=== PATIENT | male | born 1970 | race African-American/Black ===

== ENCOUNTER → 2016-11-12 | Outpatient (CLI) | payer OTHER ==
[~2016-11-12] MED LIST: 'PARAFON FORTE500 M1 PO; ASA; ASPIR-TRIN325 MG; CRESTOR5 MG PO; DIABETA5 MG; FLONASE 0.05% 121 EA NAS; HUMALOG100 U/ML SC; HYDROCODONE BIT1 T11 PO; INVOKANA100 MG PO; INVOKANA300 M1 PO; K-DUR 20MEQ20 MEQ PO; LISINOPRIL20 MG PO; LIVALO4 M1 PO; METFORMIN1000 MG; NAPROSYN500 MG PO; NOVOLOG 701 UNIT/0.0; PEPCID20 MG PO; PRILOSEC40 MG; SIMVASTATIN1 POW; SIMVASTATIN20 MG; ZESTRIL,PRINIVI10 MG PO
[2016-11-12 09:07] LABS: HEMOGLOBIN A1c 7.1 % (4.8-5.6)
[2016-11-12 09:30] LABS: ALBUMIN 3.7 gm/dl (3.1-4.5); BUN 12 mg/dl (7-24); CARBON DIOXIDE 26 mmol/L (21-32); CHLORIDE 105 mmol/L (98-107); CHOLESTEROL 231 mg/dL (<200); EST GLOM FILT AFRICAN AMERICAN > 60 ml/min; GLUCOSE 128 mg/dL (65-99); POTASSIUM 4.1 mmol/L (3.5-5.1); SGOT/AST 16 IU/L (3-35); SGPT/ALT 34 U/L (12-78); SODIUM 140 mmol/L (136-145); TRIGLYCERIDES 108 mg/dl (<150); VLDL CHOLESTEROL 22 mg/dL (6-40)
[2016-11-12 09:32] LABS: ALKALINE PHOSPHATASE 58 U/L (45-117); BILIRUBIN, TOTAL 0.5 mg/dl (0.2-1.0); HDL CHOLESTEROL 65 mg/dl (40-60); LDL CHOLESTEROL 144 mg/dL (9-159); TOTAL PROTEIN 7.6 gm/dL (6.4-8.2)
[2016-11-13 08:11] LABS: MICRO ALBUMIN/CRE RATIO 19.5 (0.0-30.0)
== END | disposition home or self-care (01) ==
LOC: LAB 08:23
PROVIDERS: Physician Assistant
DX: E11.65 Type 2 diabetes mellitus with hyperglycemia (principal); E78.2 Mixed hyperlipidemia

== ENCOUNTER → 2017-03-13 | Outpatient (CLI) | payer OTHER ==
[2017-03-13 09:38] LABS: ALBUMIN 3.5 gm/dl (3.1-4.5); ALKALINE PHOSPHATASE 65 U/L (45-117); BUN 13 mg/dl (7-24); CHLORIDE 104 mmol/L (98-107); CHOLESTEROL 247 mg/dL (<200); CREATININE 1.04 mg/dL (0.70-1.30); HDL CHOLESTEROL 56 mg/dl (40-60); LDL CHOLESTEROL 160 mg/dL (9-159); POTASSIUM 4.1 mmol/L (3.5-5.1); SGOT/AST 12 IU/L (3-35); SGPT/ALT 30 U/L (12-78); SODIUM 138 mmol/L (136-145); TOTAL PROTEIN 7.4 gm/dL (6.4-8.2); VLDL CHOLESTEROL 31 mg/dL (6-40)
== END | disposition home or self-care (01) ==
LOC: LAB 08:40
PROVIDERS: Internal Medicine Endocrinology, Diabetes & Metabolism
DX: E11.65 Type 2 diabetes mellitus with hyperglycemia (principal); E78.2 Mixed hyperlipidemia

== ENCOUNTER → 2017-07-12 | Outpatient (CLI) | payer OTHER ==
[2017-07-12 10:00] LABS: ALBUMIN 3.7 gm/dl (3.1-4.5); ALKALINE PHOSPHATASE 67 U/L (45-117); BUN 15 mg/dl (7-24); CHLORIDE 102 mmol/L (98-107); CHOLESTEROL 211 mg/dL (<200); CREATININE 1.14 mg/dL (0.70-1.30); HDL CHOLESTEROL 56 mg/dl (40-60); LDL CHOLESTEROL 126 mg/dL (9-159); SGOT/AST 18 IU/L (3-35); SGPT/ALT 45 U/L (12-78); SODIUM 136 mmol/L (136-145); TOTAL PROTEIN 7.6 gm/dL (6.4-8.2); VLDL CHOLESTEROL 29 mg/dL (6-40)
== END | disposition home or self-care (01) ==
LOC: LAB 08:50
PROVIDERS: Internal Medicine Endocrinology, Diabetes & Metabolism
DX: E11.65 Type 2 diabetes mellitus with hyperglycemia (principal); E78.2 Mixed hyperlipidemia

== ENCOUNTER 2017-09-29 12:51 | Inpatient (IN) | payer OTHER ==
[~2017-09-29] VITALS: Ht 172.7 cm; Wt 173.9 kg
[2017-09-29] VITALS (7 sets, daily range): BP systolic 114–150; BP diastolic 60–88
[~2017-09-29 12:51] MED LIST changes: -ASPIR-TRIN325 MG; +ASPIRIN325 MG PO
[2017-09-29 13:09] LABS: BASO % 0.2 % (0.0-1.0); EOS # 0.1 10*3/uL (0.0-0.4); EOS % 1.3 % (1.0-4.0); HEMATOCRIT 47.6 % (42.0-52.0); MEAN CELL VOLUME 82.1 fl (80.0-94.0); MEAN CORPUSCULAR HGB 25.9 pg (27.0-31.0); MEAN CORPUSCULAR HGB CONC 31.5 g/dl (33.0-37.0); MEAN PLATELET VOLUME 11.3 fl (9.6-12.3); MONO # 0.3 10*3/uL (0.1-1.0); MONO % 6.5 % (3.0-9.0); NEUT # 2.1 10*3/uL (2.3-7.9); NEUT % 47.8 % (47.0-73.0); PLATELET COUNT AUTOMATED 149 10*3/uL (130-400); RED CELL DISTRI WIDTH 13.7 % (0-14.5); WHITE BLOOD COUNT 4.5 10*3/uL (4.8-10.8)
[2017-09-29 13:20] LABS: ACT PARTIAL THROMBO TIME 23.4 SECONDS (20.8-31.5); INTERNATIONAL NORM RATIO 0.9 (2.0-3.5)
[2017-09-29 13:26] LABS: ALBUMIN 3.8 gm/dl (3.1-4.5); ALKALINE PHOSPHATASE 60 U/L (45-117); BUN 12 mg/dl (7-24); CHLORIDE 102 mmol/L (98-107); CREATININE 1.06 mg/dL (0.70-1.30); POTASSIUM 4.3 mmol/L (3.5-5.1); SGOT/AST 17 IU/L (3-35); SGPT/ALT 34 U/L (12-78); SODIUM 137 mmol/L (136-145); TOTAL PROTEIN 7.4 gm/dL (6.4-8.2)
[2017-09-29 13:27] LABS: TROPONIN I < 0.015 ng/ml (<0.045)
[2017-09-29] MEDS ORDERED: FARXIGA10 M1 PO (17:03)
[2017-09-30] VITALS: BP 126/70
[2017-09-30 08:00] VITALS: BP 140/90
[2017-09-30 08:23] LABS: BUN 12 mg/dl (7-24); CHLORIDE 107 mmol/L (98-107); CHOLESTEROL 211 mg/dL (<200); POTASSIUM 4.2 mmol/L (3.5-5.1); SODIUM 142 mmol/L (136-145); TRIGLYCERIDES 133 mg/dl (<150); VLDL CHOLESTEROL 27 mg/dL (6-40)
[2017-09-30 08:24] LABS: HDL CHOLESTEROL 44 mg/dl (40-60); LDL CHOLESTEROL 140 mg/dL (9-159)
[2017-09-30 12:00] VITALS: BP 155/80
[2017-09-30 16:00] VITALS: BP 148/94
[2017-09-30 20:00] VITALS: BP 131/77
[2017-10-01] VITALS: BP 115/47; BP 127/74
[2017-10-01 06:26] LABS: BASO % 0.4 % (0.0-1.0); EOS # 0.1 10*3/uL (0.0-0.4); EOS % 1.6 % (1.0-4.0); HEMATOCRIT 48.5 % (42.0-52.0); HEMOGLOBIN 14.9 g/dl (14.0-18.0); LYMPH # 2.3 10*3/uL (1.3-4.4); LYMPH % 51.2 % (27.0-41.0); MEAN CELL VOLUME 83.8 fl (80.0-94.0); MEAN CORPUSCULAR HGB 25.7 pg (27.0-31.0); MEAN CORPUSCULAR HGB CONC 30.7 g/dl (33.0-37.0); MEAN PLATELET VOLUME 11.6 fl (9.6-12.3); MONO # 0.3 10*3/uL (0.1-1.0); MONO % 7.5 % (3.0-9.0); NEUT # 1.8 10*3/uL (2.3-7.9); NEUT % 39.1 % (47.0-73.0); PLATELET COUNT AUTOMATED 148 10*3/uL (130-400); RED BLOOD COUNT 5.79 10*6/uL (4.50-5.90); RED CELL DISTRI WIDTH 13.8 % (0-14.5); WHITE BLOOD COUNT 4.5 10*3/uL (4.8-10.8)
[2017-10-01 07:01] LABS: ALBUMIN 3.5 gm/dl (3.1-4.5); ALKALINE PHOSPHATASE 51 U/L (45-117); BUN 10 mg/dl (7-24); CHLORIDE 104 mmol/L (98-107); CREATININE 0.99 mg/dL (0.70-1.30); PHOSPHOROUS 3.6 mg/dL (2.5-4.9); POTASSIUM 4.3 mmol/L (3.5-5.1); SGOT/AST 13 IU/L (3-35); SGPT/ALT 32 U/L (12-78); SODIUM 139 mmol/L (136-145); TOTAL PROTEIN 7.3 gm/dL (6.4-8.2)
[2017-10-01 08:00] VITALS: BP 122/73
[2017-10-01] MEDS ORDERED: METFORMIN500 MG PO (13:38)
[2017-10-01 16:00] VITALS: BP 130/89
== END 2017-10-01 18:31 | disposition home or self-care (01) | DRG 313 ==
LOC: ED 12:51 → 5E 16:55 → EDHOLD 16:55 → 5E 17:27
PROVIDERS: Emergency Medicine; Internal Medicine
PROC: 3E073KZ Introduction of Other Diagnostic Substance into Coronary Artery, Percutaneous Approach (ICD-10-PCS; principal; 2017-10-01)
PROC: 4A02XM4 Measurement of Cardiac Total Activity, External Approach (ICD-10-PCS; principal; 2017-10-01)
DX: R07.89 Other chest pain (principal); E11.65 Type 2 diabetes mellitus with hyperglycemia; Z68.43 Body mass index [BMI] 50.0-59.9, adult; E66.01 Morbid (severe) obesity due to excess calories; I10 Essential (primary) hypertension; E78.5 Hyperlipidemia, unspecified; E83.41 Hypermagnesemia; Z79.82 Long term (current) use of aspirin; Z79.84 Long term (current) use of oral hypoglycemic drugs; Z79.899 Other long term (current) drug therapy; Z82.49 Family history of ischemic heart disease and other diseases of the circulatory system; Z83.3 Family history of diabetes mellitus

== ENCOUNTER 2020-04-24 11:54 | Emergency (ER) | payer OTHER ==
[~2020-04-24 11:54] MED LIST changes: +FARXIGA10 M1 PO; +METFORMIN500 MG PO; +TRULICITY1.5 MG/0.5 SC
[2020-04-24] MEDS ORDERED: TRADJENTA5 M1 PO (12:16)
[2020-04-24 12:30] LABS: LYMPH # 1.2 10*3/uL (1.3-4.4); LYMPH % 37.8 % (27.0-41.0); MEAN CELL VOLUME 79.9 fl (80.0-94.0); MEAN CORPUSCULAR HGB CONC 31.3 g/dl (33.0-37.0); MONO # 0.2 10*3/uL (0.1-1.0); MONO % 5.7 % (3.0-9.0); NEUT # 1.8 10*3/uL (2.3-7.9); NEUT % 55.9 % (47.0-73.0); PLATELET COUNT AUTOMATED 123 10*3/uL (130-400); RED BLOOD COUNT 5.63 10*6/uL (4.50-5.90); RED CELL DISTRI WIDTH 13.3 % (0-14.5); WHITE BLOOD COUNT 3.2 10*3/uL (4.8-10.8)
[2020-04-24 12:45] LABS: ALBUMIN 2.6 gm/dl (3.1-4.5); ALKALINE PHOSPHATASE 48 U/L (45-117); BUN 9 mg/dl (7-24); CHLORIDE 99 mmol/L (98-107); CREATININE 1.17 mg/dL (0.70-1.30); POTASSIUM 3.4 mmol/L (3.5-5.1); SGOT/AST 20 IU/L (3-35); SGPT/ALT 31 U/L (12-78); SODIUM 134 mmol/L (136-145); TOTAL PROTEIN 7.1 gm/dL (6.4-8.2)
[2020-04-24 12:47] LABS: TROPONIN I < 0.015 ng/ml (<0.045)
== END 2020-04-24 13:26 | disposition home or self-care (01) ==
LOC: ED 11:54
PROVIDERS: Student in an Organized Health Care Education/Training Program
DX: U07.1 COVID-19 (principal); B34.9 Viral infection, unspecified; E11.9 Type 2 diabetes mellitus without complications; E66.01 Morbid (severe) obesity due to excess calories; Z79.899 Other long term (current) drug therapy; Z79.82 Long term (current) use of aspirin; Z98.61 Coronary angioplasty status

== ENCOUNTER 2020-04-26 13:19 | Inpatient (IN) | payer OTHER ==
[~2020-04-26] VITALS: Ht 182.8 cm; Wt 156.9 kg
[~2020-04-26 13:19] MED LIST changes: +TRADJENTA5 M1 PO
[2020-04-26 13:55] VITALS: BP 124/69
[2020-04-26 14:44] LABS: BASO % 0.2 % (0.0-1.0); EOS % 0.2 % (1.0-4.0); HEMATOCRIT 43.8 % (42.0-52.0); LYMPH # 0.9 10*3/uL (1.3-4.4); LYMPH % 18.4 % (27.0-41.0); MEAN CELL VOLUME 78.8 fl (80.0-94.0); MEAN CORPUSCULAR HGB 24.6 pg (27.0-31.0); MEAN CORPUSCULAR HGB CONC 31.3 g/dl (33.0-37.0); MEAN PLATELET VOLUME 12.2 fl (9.6-12.3); MONO # 0.2 10*3/uL (0.1-1.0); MONO % 4.7 % (3.0-9.0); NEUT # 3.9 10*3/uL (2.3-7.9); NEUT % 75.5 % (47.0-73.0); PLATELET COUNT AUTOMATED 178 10*3/uL (130-400); RED BLOOD COUNT 5.56 10*6/uL (4.50-5.90); RED CELL DISTRI WIDTH 13.1 % (0-14.5); WHITE BLOOD COUNT 5.1 10*3/uL (4.8-10.8)
[2020-04-26 14:59] LABS: ALBUMIN 2.4 gm/dl (3.1-4.5); ALKALINE PHOSPHATASE 46 U/L (45-117); BUN 14 mg/dl (7-24); CHLORIDE 97 mmol/L (98-107); CREATININE 1.25 mg/dL (0.70-1.30); LDH 457 U/L (87-241); POTASSIUM 3.2 mmol/L (3.5-5.1); SGOT/AST 27 IU/L (3-35); SGPT/ALT 22 U/L (12-78); SODIUM 134 mmol/L (136-145); TOTAL PROTEIN 7.1 gm/dL (6.4-8.2)
[2020-04-26 15:14] LABS: ACT PARTIAL THROMBO TIME 30.2 SECONDS (20.0-32.1)
--- NOTE | 2020-04-26 16:21 | NUR ---
PT W/O ACUTE DISTRESS NOTED WATCHING T.V. AWAITING ALL RESULTS FOR ADDITIONAL PLAN OF CARE,SAFETY PRECAUTIONS INTACT AND CALL LIGHT WITHIN REACH.
[2020-04-26 17:33] VITALS: BP 130/72
--- NOTE | 2020-04-26 19:30 | NUR ---
PT PROVIDED A DINNER TRAY WATCHING T.V. AND NO COMPLAINTS VOICED,CALL LIGHT WITHIN REACH.
--- NOTE | 2020-04-26 19:42 | NUR ---
PT WAS 89% ON ROOMAIR. 3L NC WAS APPLIED. PT RESTING IN BED. SAFTEY PRECAUTIONS IN PLACE.
[2020-04-26] MEDS ORDERED: VITAMIN D350 MCG PO (19:48)
[2020-04-26] MEDS ORDERED: TOUJEO SOL300 UNIT/1 SQ (19:49)
[2020-04-26 19:51] LABS: ABG BASE EXCESS 2.2 mmol/L (-2.0-2.0); ARTERIAL BLOOD GAS PH 7.46 (7.35-7.45)
[2020-04-26] MEDS ORDERED: ATORVASTATIN CA10 M1 PO (19:53)
[2020-04-26 20:10] VITALS: BP 124/75
--- NOTE | 2020-04-26 21:21 | NUR ---
NURSE TO NURSE REPORT GIVEN TO THIS RN.KATLYN SHELTON AND KATLYN ARGUELLES UNSURE AT THIS TIME IF CONSULT WAS COMPLETED FOR DR LOUIS.
--- NOTE | 2020-04-26 21:31 | NUR ---
THIS RN CONTACTED RESIDENT DR AVILA HE IS UNAWARE OF DR LOUIS HAVING BEEN CONTACTED REGARDING THIS PT.THIS RN WILL PLACE CALL OUT FOR DR LOUIS.
[2020-04-26 21:50] VITALS: BP 131/75
--- NOTE | 2020-04-26 21:51 | NUR ---
PT VITALS REASSESSED.PT DENIES ANY NEEDS.
--- NOTE | 2020-04-26 21:52 | NUR ---
DR LOUIS CONTACTED VERBAL ORDER OBTAINED,LOVENOX 150MG Q12H @10AM AND 10PM,ABG'S AT 8AM,AND 2L O2 VIA NC FOR A CO2 LEVEL OF 50.
--- NOTE | 2020-04-26 22:11 | NUR ---
PT MEDICATED PER EMAR 160MG LOVENOX LEFT ABDOMEN.PT ON 2L O2 VIA NC.
--- NOTE | 2020-04-26 22:18 | NUR ---
PHARMACY CONTACTED,THIS RN SPOKE WITH TANVI, UPDATED ON CORRECT DOSAGE OF LOVENOX.HE STATES HE WILL CORRECT IN EMAR FOR AM DOSAGE.
--- NOTE | 2020-04-26 23:25 | NUR ---
PT RESTING IN BED.PT PROVIDED DRINK OF WATER.PT DENIES ANY OTHER NEEDS AT THIS TIME.
[2020-04-27 02:05] VITALS: BP 128/77
--- NOTE | 2020-04-27 04:02 | NUR ---
THIS RN SPOKE WITH DENISE KAYE WHO STATES SHE IS READY FOR PT AT THIS TIME.NURSE TO NURSE REPORT GIVEN TO THIS RN OVER THE PHONE.
[2020-04-27 04:30] VITALS: BP 154/87
--- NOTE | 2020-04-27 04:30 | NUR ---
A 50, admitted to 4E, under the services of THUAN Clarke DO with a diagnosis of SUSPECTED COVID19. Chief complaint is ABNORMAL LABS. Patient arrived via stretcher from ER. Monitor applied. Initial assessment completed. Vital signs taken and recorded. THUAN CLARKE DO notified of admission to the unit. Orders received. See assessment for past medical history, medications and allergies. Patient and/or family oriented to unit. [facility] visitation policy reviewed. Clothing/patient valuable form completed. MIKKI BARNEY
[2020-04-27] MEDS ORDERED: CO Q1060 MG PO (04:56)
--- NOTE | 2020-04-27 05:00 | NUR ---
PT MED REC UP TO DATE PER PT RECALL.
[2020-04-27 06:33] LABS: MEAN CELL VOLUME 79.8 fl (80.0-94.0); MEAN CORPUSCULAR HGB 24.9 pg (27.0-31.0); MEAN CORPUSCULAR HGB CONC 31.2 g/dl (33.0-37.0); PLATELET COUNT AUTOMATED 190 10*3/uL (130-400); RED BLOOD COUNT 5.26 10*6/uL (4.50-5.90); RED CELL DISTRI WIDTH 13.1 % (0-14.5); WHITE BLOOD COUNT 3.2 10*3/uL (4.8-10.8)
[2020-04-27 06:51] LABS: ALBUMIN 2.1 gm/dl (3.1-4.5); ALKALINE PHOSPHATASE 47 U/L (45-117); BUN 16 mg/dl (7-24); CHLORIDE 101 mmol/L (98-107); CPK 95 U/L (39-308); CREATININE 1.21 mg/dL (0.70-1.30); LDH 442 U/L (87-241); POTASSIUM 4.2 mmol/L (3.5-5.1); SGOT/AST 25 IU/L (3-35); SGPT/ALT 22 U/L (12-78); SODIUM 136 mmol/L (136-145); TOTAL PROTEIN 7.1 gm/dL (6.4-8.2)
[2020-04-27 08:00] VITALS: BP 147/86
[2020-04-27 08:01] LABS: ATYPICAL LYMPHS 2 % (0-0); PLATELET SUFFICIENCY NORMAL (NORMAL); TOTAL CELLS COUNTED 100 #CELLS
--- NOTE | 2020-04-27 08:30 | NUR ---
PATIENT SITTING UP IN BED. NO DISTRESS NOTED. RESPIRATIONS EASY, REGULAR. POX 93% VIA 3LNC. DENIES ANY SOB. LUNGS DIMINISHED T/O. NO VOICED COMPLAINTS AT THIS TIME. WILL CONTINUE TO MONTIOR. VSS. CALL LIGHT WITHIN REACH.
[2020-04-27 08:32] LABS: ABG BASE EXCESS 0.8 mmol/L (-2.0-2.0); ARTERIAL BLOOD GAS PH 7.434 (7.35-7.45)
--- NOTE | 2020-04-27 09:00 | NUR ---
Crankshaft Balancer in to talk to patient. Patient states lives at home with . There are 20 steps in the home. Physician: jana may Pharmacy: [facility] health services: none Patient's level of ADLs: INDEPENDENT Patient has working utilities: all working DME: none Follow-up physician's appointment after d/c: will be made by hospitalist nurse director upon discharge Does patient want to access PORTAL?: no Discharge plan discussed with patient, he lives at home, is independent in adls and ambulation, works, drives, he states he will return home when discharged and denies at this time any home needs, case management will follow. AMANDA HPAM
[2020-04-27 12:00] VITALS: BP 155/88
--- NOTE | 2020-04-27 13:55 | NUR ---
'S OFFICE CALLED REGARDING CONSULT.
[2020-04-27 16:00] VITALS: BP 150/82
--- NOTE | 2020-04-27 16:30 | NUR ---
BSG READING 403. CRITICALLY HIGH. NOTIFIED. REPEAT BSG INITIATED PER POLICY. REPEAT STICK 388. 12 UNITS OF INSULIN GIVEN PER S/S. WILL CONTINUE TO MONITOR.
--- NOTE | 2020-04-27 23:15 | NUR ---
24 HR chart check completed.
[2020-04-28] VITALS: BP 143/86
[2020-04-28 07:03] LABS: HEMATOCRIT 43.6 % (42.0-52.0); MEAN CELL VOLUME 80.1 fl (80.0-94.0); MEAN CORPUSCULAR HGB 24.4 pg (27.0-31.0); MEAN CORPUSCULAR HGB CONC 30.5 g/dl (33.0-37.0); MEAN PLATELET VOLUME 12.2 fl (9.6-12.3); RED BLOOD COUNT 5.44 10*6/uL (4.50-5.90); RED CELL DISTRI WIDTH 13.3 % (0-14.5); WHITE BLOOD COUNT 6.9 10*3/uL (4.8-10.8)
[2020-04-28 07:04] LABS: PLATELET COUNT AUTOMATED 257 10*3/uL (130-400)
[2020-04-28 07:21] LABS: ALBUMIN 2.1 gm/dl (3.1-4.5); ALKALINE PHOSPHATASE 48 U/L (45-117); BUN 16 mg/dl (7-24); CHLORIDE 103 mmol/L (98-107); CREATININE 1.03 mg/dL (0.70-1.30); LDH 390 U/L (87-241); POTASSIUM 3.9 mmol/L (3.5-5.1); SGOT/AST 16 IU/L (3-35); SGPT/ALT 24 U/L (12-78); SODIUM 138 mmol/L (136-145)
[2020-04-28 07:22] LABS: CPK 70 U/L (39-308)
[2020-04-28 07:28] LABS: ATYPICAL LYMPHS 1 % (0-0); PLATELET SUFFICIENCY NORMAL (NORMAL); TOTAL CELLS COUNTED 100 #CELLS
[2020-04-28 08:00] VITALS: BP 143/86
[2020-04-28 08:10] LABS: ABG BASE EXCESS 3.1 mmol/L (-2.0-2.0); ARTERIAL BLOOD GAS PH 7.471 (7.35-7.45)
--- NOTE | 2020-04-28 09:00 | NUR ---
case management talks with patient. he will return home when discharged and denies any needs at this time, case management will follow
[2020-04-28 12:00] VITALS: BP 132/80
--- NOTE | 2020-04-28 13:36 | NUR ---
NOTIFIED OF NEGATIVE COVID PCR FROM 04/26, AND NEGATIVE COVID RAPID FROM TODAY, 04/29. ORDERED TO KEEP PATIENT IN COVID ISOLATION PRECAUTIONS UNTIL PCCR FROM TODAY, 04/29 COMES BACK.
[2020-04-28 16:00] VITALS: BP 155/98
[2020-04-28 20:00] VITALS: BP 148/96
[2020-04-29] VITALS: BP 146/90
--- NOTE | 2020-04-29 01:54 | NUR ---
CHART CHECK COMPLETE.
[2020-04-29 07:06] LABS: BASO % 0.1 % (0.0-1.0); EOS % 0.1 % (1.0-4.0); HEMATOCRIT 43.7 % (42.0-52.0); LYMPH # 1.1 10*3/uL (1.3-4.4); LYMPH % 14.9 % (27.0-41.0); MEAN CELL VOLUME 81.5 fl (80.0-94.0); MEAN CORPUSCULAR HGB 24.8 pg (27.0-31.0); MEAN CORPUSCULAR HGB CONC 30.4 g/dl (33.0-37.0); MEAN PLATELET VOLUME 11.3 fl (9.6-12.3); MONO # 0.4 10*3/uL (0.1-1.0); MONO % 5.8 % (3.0-9.0); NEUT # 5.6 10*3/uL (2.3-7.9); PLATELET COUNT AUTOMATED 282 10*3/uL (130-400); RED BLOOD COUNT 5.36 10*6/uL (4.50-5.90); RED CELL DISTRI WIDTH 13.5 % (0-14.5); WHITE BLOOD COUNT 7.1 10*3/uL (4.8-10.8)
--- NOTE | 2020-04-29 07:28 | NUR ---
Dr. Kruger notified that covid-19 swab was negative.
[2020-04-29 08:00] VITALS: BP 157/91
--- NOTE | 2020-04-29 09:00 | NUR ---
patient will return home when discharged and denies any home needs at this time, case management will follow
[2020-04-29 09:16] LABS: ALBUMIN 2.2 gm/dl (3.1-4.5); ALKALINE PHOSPHATASE 55 U/L (45-117); BUN 15 mg/dl (7-24); CHLORIDE 106 mmol/L (98-107); CPK 64 U/L (39-308); CREATININE 0.98 mg/dL (0.70-1.30); LDH 427 U/L (87-241); SGOT/AST 22 IU/L (3-35); SGPT/ALT 28 U/L (12-78); SODIUM 141 mmol/L (136-145); TOTAL PROTEIN 6.2 gm/dL (6.4-8.2)
[2020-04-29 09:29] LABS: POTASSIUM 5.1 mmol/L (3.5-5.1)
[2020-04-29 10:00] VITALS: BP 157/91
--- NOTE | 2020-04-29 13:20 | NUR ---
B/P 157/91, HEART RATE 72. PULSE OX ON R/A AT REST 87%. PT. ON 2L AT REST 86% PT. ON 3L AT REST 87% PT. ON 4L AT REST 93%. PT. LIMITED AMBULATION IN ROOM DUE TO ISOLATION, SAT 92% PT RESTING AT BED SAT 93% ON 4L. DR. LOUIS NOTIFIED. RN NOTIFIED.
[2020-04-29 14:00] VITALS: BP 153/93
--- NOTE | 2020-04-29 14:07 | NUR ---
case delaney received a script for home oxygen,. script faxed to [facility] to check benefits. case management will follow
--- NOTE | 2020-04-29 14:37 | NUR ---
Dr. Kruger notified that pt flu swab was negative.
--- NOTE | 2020-04-29 15:15 | NUR ---
Spoke to Leticia from [facility]. She states she will be here at the hospital in about 15-20 minutes to deliver portable O2.
--- NOTE | 2020-04-29 16:44 | NUR ---
Dr. Kruger called and stated they are not going to dc the pt today. Notified pt of this. Pt dissatisfied. Pt states they told him early this morning that he was going to go home today.
--- NOTE | 2020-04-29 19:30 | NUR ---
CHART CHECK COMPLETE.
[2020-04-29 20:00] VITALS: BP 131/75
[2020-04-30] VITALS: BP 158/76
[2020-04-30 06:39] LABS: BASO % 0.3 % (0.0-1.0); EOS % 0.6 % (1.0-4.0); HEMATOCRIT 43.3 % (42.0-52.0); LYMPH # 1.3 10*3/uL (1.3-4.4); LYMPH % 19.6 % (27.0-41.0); MEAN CELL VOLUME 80.8 fl (80.0-94.0); MEAN CORPUSCULAR HGB 24.4 pg (27.0-31.0); MEAN CORPUSCULAR HGB CONC 30.3 g/dl (33.0-37.0); MEAN PLATELET VOLUME 11.3 fl (9.6-12.3); MONO # 0.4 10*3/uL (0.1-1.0); MONO % 6.1 % (3.0-9.0); NEUT # 4.6 10*3/uL (2.3-7.9); NEUT % 70.5 % (47.0-73.0); PLATELET COUNT AUTOMATED 328 10*3/uL (130-400); RED BLOOD COUNT 5.36 10*6/uL (4.50-5.90); RED CELL DISTRI WIDTH 13.5 % (0-14.5); WHITE BLOOD COUNT 6.6 10*3/uL (4.8-10.8)
[2020-04-30 06:50] LABS: ALBUMIN 2.1 gm/dl (3.1-4.5); ALKALINE PHOSPHATASE 53 U/L (45-117); BUN 14 mg/dl (7-24); CHLORIDE 106 mmol/L (98-107); CPK 45 U/L (39-308); CREATININE 1.06 mg/dL (0.70-1.30); LDH 342 U/L (87-241); POTASSIUM 3.7 mmol/L (3.5-5.1); SGOT/AST 35 IU/L (3-35); SGPT/ALT 46 U/L (12-78); SODIUM 140 mmol/L (136-145); TOTAL PROTEIN 6.6 gm/dL (6.4-8.2)
[2020-04-30 08:00] VITALS: BP 143/96
--- NOTE | 2020-04-30 10:38 | NUR ---
PT SEEN AND ASSESSED. DR MUNGUIA WAS IN TO SEE PT AND DISCUSSED POSSIBILITY TO DISCHARGE. PT HAS OXYGEN TANK IN HIS ROOM AND WAS INSTRUCTED ON OBTAINING HIS OXYGEN AT HOME. PT IS RESTING COMFORTABLY ON 4L NC DENIES SOB AND APPEARS TO BE RESTING COMFORTABLY IN BED.
--- NOTE | 2020-04-30 11:00 | NUR ---
NOTIFIED DR LARA OF DR MUNGUIA RECCOMENDATIONS FOR DISCAHRGE AND THAT THE PT HAS HOME OXYGEN SET UP. DR LARA INQUIRED ABOUT DR LOUIS MAKING ROUNDS WHICH HE HAS NOT YET DONE SO. NO PLANS TO DC AT THIS TIME.
[2020-04-30] MEDS ORDERED: DECADRON6 M1 PO (11:43)
--- NOTE | 2020-04-30 13:47 | NUR ---
PT FOR DISCHARGE TO HOME W/ HOME O2 @4LNC IV SITE REMOVED, HEMOSTASIS OBTAINED, SITE SECURED W/ 2X2 AND TAPE. MONITOR REMOVED. REVIEWED NEED TO OBTAIN PRESCRIPTION DECADRON. REVIEWED DISCHARGE INSTRUCTIONS. PT VERBALIZES HIS UNDERSTANDING OF EDUCATION.
== END 2020-04-30 13:47 | disposition home or self-care (01) | DRG 189 ==
LOC: ED 13:19 → 4E 16:47 → EDHOLD 16:47 → 4E 04-27 02:01
PROVIDERS: Family Medicine; Internal Medicine; Internal Medicine Critical Care Medicine; ADMIT Internal Medicine; ATTEND Internal Medicine
DX: J96.00 Acute respiratory failure, unspecified whether with hypoxia or hypercapnia (principal); E43 Unspecified severe protein-calorie malnutrition; E87.1 Hypo-osmolality and hyponatremia; D68.59 Other primary thrombophilia; Z68.42 Body mass index [BMI] 45.0-49.9, adult; J84.9 Interstitial pulmonary disease, unspecified; Z20.828 Contact with and (suspected) exposure to other viral communicable diseases; D64.9 Anemia, unspecified; M54.41 Lumbago with sciatica, right side; E87.6 Hypokalemia; E83.41 Hypermagnesemia; R74.02 Elevation of levels of lactic acid dehydrogenase [LDH]; E11.65 Type 2 diabetes mellitus with hyperglycemia; I10 Essential (primary) hypertension; E66.01 Morbid (severe) obesity due to excess calories; G89.29 Other chronic pain; E78.5 Hyperlipidemia, unspecified; J01.00 Acute maxillary sinusitis, unspecified; J32.0 Chronic maxillary sinusitis; E86.0 Dehydration; Z82.49 Family history of ischemic heart disease and other diseases of the circulatory system; Z79.82 Long term (current) use of aspirin; Z79.4 Long term (current) use of insulin; Z79.899 Other long term (current) drug therapy

== ENCOUNTER → 2020-05-18 | Outpatient (CLI) | payer OTHER ==
[~2020-05-18] MED LIST changes: +ATORVASTATIN CA10 M1 PO; +CO Q1060 MG PO; +DECADRON6 M1 PO; +TOUJEO SOL300 UNIT/1 SQ; +VITAMIN D350 MCG PO
[2020-05-18 10:03] LABS: EOS # 0.1 10*3/uL (0.0-0.4); EOS % 2.8 % (1.0-4.0); LYMPH # 1.6 10*3/uL (1.3-4.4); MEAN CELL VOLUME 81.7 fl (80.0-94.0); MEAN CORPUSCULAR HGB 24.9 pg (27.0-31.0); MEAN CORPUSCULAR HGB CONC 30.5 g/dl (33.0-37.0); MEAN PLATELET VOLUME 10.9 fl (9.6-12.3); MONO # 0.4 10*3/uL (0.1-1.0); MONO % 9.2 % (3.0-9.0); NEUT # 2.1 10*3/uL (2.3-7.9); NEUT % 50.1 % (47.0-73.0); PLATELET COUNT AUTOMATED 128 10*3/uL (130-400); RED BLOOD COUNT 5.14 10*6/uL (4.50-5.90); RED CELL DISTRI WIDTH 14.2 % (0-14.5); WHITE BLOOD COUNT 4.2 10*3/uL (4.8-10.8)
== END | disposition home or self-care (01) ==
LOC: LAB 09:47
PROVIDERS: ATTEND Nurse Practitioner Primary Care
DX: U07.1 COVID-19 (principal); J18.9 Pneumonia, unspecified organism; R79.89 Other specified abnormal findings of blood chemistry

== ENCOUNTER → 2020-05-30 | Outpatient (CLI) | payer OTHER | END | disposition home or self-care (01) | LOC: RAD 10:21 | PROVIDERS: ATTEND Nurse Practitioner Primary Care | DX: J18.9 Pneumonia, unspecified organism (principal) ==

== ENCOUNTER → 2020-07-19 | Outpatient (CLI) | payer OTHER ==
[2020-07-19 12:33] LABS: BASO % 0.2 % (0.0-1.0); EOS # 0.1 10*3/uL (0.0-0.4); EOS % 1.4 % (1.0-4.0); HEMATOCRIT 47.7 % (42.0-52.0); LYMPH # 1.7 10*3/uL (1.3-4.4); LYMPH % 39.4 % (27.0-41.0); MEAN CELL VOLUME 83.5 fl (80.0-94.0); MEAN CORPUSCULAR HGB 25.4 pg (27.0-31.0); MEAN CORPUSCULAR HGB CONC 30.4 g/dl (33.0-37.0); MEAN PLATELET VOLUME 11.8 fl (9.6-12.3); MONO # 0.3 10*3/uL (0.1-1.0); MONO % 6.3 % (3.0-9.0); NEUT # 2.3 10*3/uL (2.3-7.9); NEUT % 52.5 % (47.0-73.0); PLATELET COUNT AUTOMATED 171 10*3/uL (130-400); RED BLOOD COUNT 5.71 10*6/uL (4.50-5.90); WHITE BLOOD COUNT 4.3 10*3/uL (4.8-10.8)
[2020-07-19 13:07] LABS: ALBUMIN 3.6 gm/dl (3.1-4.5); ALKALINE PHOSPHATASE 68 U/L (45-117); BILIRUBIN, DIRECT 0.1 mg/dL (0.0-0.2); BUN 13 mg/dl (7-24); CHLORIDE 109 mmol/L (98-107); CHOLESTEROL 150 mg/dL (<200); FREE T4 0.84 ng/dl (0.76-1.46); LIPASE 180 U/L (73-393); POTASSIUM 4.6 mmol/L (3.5-5.1); SGOT/AST 11 IU/L (3-35); SGPT/ALT 30 U/L (12-78); SODIUM 141 mmol/L (136-145); THYROXINE (T4) TOTAL 7.2 ug/dl (4.5-12.1); TOTAL PROTEIN 7.9 gm/dL (6.4-8.2); TRIGLYCERIDES 96 mg/dl (<150); VLDL CHOLESTEROL 19 mg/dL (6-40)
[2020-07-19 13:12] LABS: HDL CHOLESTEROL 55 mg/dl (40-60); LDL CHOLESTEROL 76 mg/dL (9-159)
== END | disposition home or self-care (01) ==
LOC: LAB 11:52
PROVIDERS: ATTEND Surgery
DX: E66.01 Morbid (severe) obesity due to excess calories (principal)

== ENCOUNTER → 2021-04-11 | Outpatient (CLI) | payer OTHER | END | disposition home or self-care (01) | LOC: RAD 10:13 | PROVIDERS: ATTEND Nurse Practitioner Primary Care | DX: M79.644 Pain in right finger(s) (principal) ==

== ENCOUNTER → 2021-06-29 | Outpatient (CLI) | payer OTHER ==
[2021-06-29 09:13] LABS: BASO % 0.2 % (0.0-1.0); EOS # 0.1 10*3/uL (0.0-0.4); EOS % 1.7 % (1.0-4.0); HEMATOCRIT 47.8 % (42.0-52.0); LYMPH # 2.1 10*3/uL (1.3-4.4); MEAN CELL VOLUME 84.3 fl (80.0-94.0); MEAN CORPUSCULAR HGB 26.3 pg (27.0-31.0); MEAN CORPUSCULAR HGB CONC 31.2 g/dl (33.0-37.0); MONO # 0.3 10*3/uL (0.1-1.0); MONO % 7.8 % (3.0-9.0); NEUT # 1.7 10*3/uL (2.3-7.9); NEUT % 40.1 % (47.0-73.0); PLATELET COUNT AUTOMATED 183 10*3/uL (130-400); RED BLOOD COUNT 5.67 10*6/uL (4.50-5.90); RED CELL DISTRI WIDTH 14.6 % (0-14.5); WHITE BLOOD COUNT 4.1 10*3/uL (4.8-10.8)
[2021-06-29 09:47] LABS: ALBUMIN 3.3 gm/dl (3.1-4.5); ALKALINE PHOSPHATASE 75 U/L (45-117); BUN 9 mg/dl (7-24); CHLORIDE 110 mmol/L (98-107); CREATININE 1.07 mg/dL (0.70-1.30); IRON 117 ug/dL (65-175); POTASSIUM 4.5 mmol/L (3.5-5.1); SGOT/AST 14 IU/L (3-35); SGPT/ALT 24 U/L (12-78); SODIUM 141 mmol/L (136-145); TOTAL IRON BINDING CAPACITY 244 ug/dl (250-450); TOTAL PROTEIN 6.9 gm/dL (6.4-8.2)
[2021-06-29 10:05] LABS: FERRITIN 277.3 ng/mL (22.0-322.0); VITAMIN D, 25-HYDROXY 24.9 ng/mL (30-100)
== END | disposition home or self-care (01) ==
LOC: LAB 08:35
PROVIDERS: ATTEND Surgery
DX: K91.2 Postsurgical malabsorption, not elsewhere classified (principal)

== ENCOUNTER → 2022-09-04 | Outpatient (CLI) | payer OTHER | END | disposition home or self-care (01) | LOC: US 01:05 | PROVIDERS: ATTEND Nurse Practitioner Primary Care | DX: I73.9 Peripheral vascular disease, unspecified (principal) ==

== ENCOUNTER → 2024-03-23 | Outpatient (CLI) | payer OTHER ==
[2024-03-23 09:12] LABS: BASO % 0.6 % (0.0-1.0); EOS # 0.1 10*3/uL (0.0-0.4); EOS % 2.8 % (1.0-4.0); HEMATOCRIT 43.8 % (42.0-52.0); LYMPH # 1.6 10*3/uL (1.3-4.4); LYMPH % 49.8 % (27.0-41.0); MEAN CELL VOLUME 86.1 fl (80.0-94.0); MEAN CORPUSCULAR HGB 27.1 pg (27.0-31.0); MEAN CORPUSCULAR HGB CONC 31.5 g/dl (33.0-37.0); MEAN PLATELET VOLUME 11.6 fl (9.6-12.3); MONO # 0.2 10*3/uL (0.1-1.0); MONO % 7.1 % (3.0-9.0); NEUT # 1.3 10*3/uL (2.3-7.9); NEUT % 39.4 % (47.0-73.0); PLATELET COUNT AUTOMATED 159 10*3/uL (130-400); RED BLOOD COUNT 5.09 10*6/uL (4.50-5.90); RED CELL DISTRI WIDTH 13.3 % (0-14.5); WHITE BLOOD COUNT 3.2 10*3/uL (4.8-10.8)
[2024-03-23 09:56] LABS: ALKALINE PHOSPHATASE 64 U/L (46-116); BUN 9 mg/dl (9-23); CHLORIDE 106 mmol/L (98-107); CHOLESTEROL 185 mg/dL (<200); LDL CHOLESTEROL 104 mg/dL (9-159); POTASSIUM 3.9 mmol/L (3.4-5.1); SGPT/ALT 25 U/L (5-49); TRIGLYCERIDES 66 mg/dl (<150)
[2024-03-23 10:21] LABS: VITAMIN D, 25-HYDROXY 31.4 ng/mL (30-100)
== END | disposition home or self-care (01) ==
LOC: LAB 08:29
PROVIDERS: ATTEND Nurse Practitioner Primary Care
DX: I10 Essential (primary) hypertension (principal); E55.9 Vitamin D deficiency, unspecified; E78.00 Pure hypercholesterolemia, unspecified; Z98.890 Other specified postprocedural states